=== PATIENT | male | born 1965 | race Two or more races ===

== ENCOUNTER 2020-01-25 08:27 | Inpatient (IN) | payer MEDICAID ==
[~2020-01-25] VITALS: Ht 167.6 cm; Wt 92.1 kg
[2020-01-25 08:33] VITALS: BP 174/79
--- NOTE | 2020-01-25 08:40 | NUR ---
54 YEAR OLD MALE COMPLAINS OF TACHYCARDIA AFTER BEING REFERED BY DOCTOR. PT STATES HE NO LONGER HAS CHEST PAIN FROM TRIAGE. PT DENIES SOB. PT PLACED ON MONITOR, HR 130, RR 20, SPO2 97% ON RA, BP 179/78. ERMD MADE AWARE OF PT STATUS. PT AOX4, BREATHING EVEN AND UNLABORED, SKIN WARM AND DRY. BED IN LOWEST POSITION, LOCKED, BED RAIL UPX1. PMH - HTN ALLERGIES - NKA
[2020-01-25] MEDS ORDERED: ASPIRIN 325 MG TAB PO ONE (08:45)
[2020-01-25] MEDS ORDERED: DILTIAZEM 25 MG/5 ML VIAL IVP ONE (08:55)
[2020-01-25] MEDS ORDERED: NACL 0.9% 1,000 ML IV ONE (08:55)
[2020-01-25 09:04] LABS: BASOPHILS % (AUTO) 0.5 % (0.0-2.0); EOSINOPHILS # (AUTO) 0.6 K/uL (0-0.4); EOSINOPHILS % (AUTO) 6.2 % (0.0-4.0); HEMATOCRIT 45.6 % (36-52); HEMOGLOBIN 15.7 g/dL (12.0-18.0); LYMPHOCYTES # (AUTO) 1.7 K/uL (2.0-11.5); LYMPHOCYTES % (AUTO) 16.6 % (20.5-51.1); MEAN CORPUSCULAR HEMOGLOBIN 30 pg (27-31); MEAN CORPUSCULAR HGB CONC 35 g/dL (33-37); MEAN CORPUSCULAR VOLUME 87.6 fL (80-94); MONOCYTES # (AUTO) 0.7 K/uL (0.8-1.0); MONOCYTES % (AUTO) 6.5 % (1.7-9.3); NEUTROPHILS # (AUTO) 7.1 K/uL (1.8-7.7); NEUTROPHILS % (AUTO) 70.2 % (42.2-75.2); PLATELET COUNT (AUTO) 216 K/uL (140-450); RED CELL DISTRIBUTION WIDTH 15.8 % (11.6-13.7); WHITE BLOOD COUNT (AUTO) 10.2 K/uL (4.8-10.8)
[2020-01-25 09:20] LABS: CARBON DIOXIDE 25.1 mmol/L (21-32); CREATININE 1.2 mg/dL (0.6-1.3); POTASSIUM 4.1 mmol/L (3.5-5.1)
[2020-01-25] MEDS ORDERED: HEPARIN PER PHARMACY MC PRN (09:50)
[2020-01-25] MEDS ORDERED: hePARIN / DEXT 5% PREMIX 250 ML IV ONE (09:50)
--- NOTE | 2020-01-25 10:14 | NUR ---
PT ALERT AND AWAKE, BREATHING EVEN AND UNLABORED. NO DISTRESS NOTED.
--- NOTE | 2020-01-25 10:30 | NUR ---
HEPARIN DRIP INITIAL BOLUS OF 5000 UNITS, RATE OF 900 UNITS/HR
--- NOTE | 2020-01-25 10:30 | NUR ---
HEPARIN DRIP STARTED PER PROTOCOL, VERIFIED BY EDMUND PAZ AND EDITA PAZ.
[2020-01-25] MEDS: hePARIN / DEXT 5% PREMIX 250 ML IV SCH (10:31)
[2020-01-25] MEDS ORDERED: NITROGLYCERIN 0.4 MG TAB SL PRN (11:30)
[2020-01-25] MEDS ORDERED: ACETAMINOPHEN 325 MG TAB PO PRN (11:30)
[2020-01-25] MEDS ORDERED: HYDROcodone/APAP 7.5/325 MG 1 TAB PO PRN (11:30)
[2020-01-25] MEDS ORDERED: guaiFENesin DM 200/20 MG-10 ML 10 ML UDC PO PRN (11:30)
[2020-01-25] MEDS ORDERED: POTASSIUM CHLORIDE 10 MEQ TABER PO PRN (11:30)
[2020-01-25] MEDS ORDERED: ONDANSETRON 4 MG/2 ML VIAL IM/IVP PRN (11:30)
[2020-01-25] MEDS ORDERED: ZOLPIDEM 5 MG TAB PO PRN (11:30)
[2020-01-25] MEDS ORDERED: DOCUSATE SODIUM 100 MG GELCAP PO PRN (11:30)
--- NOTE | 2020-01-25 11:51 | NUR ---
PT C/O 5/10 CHEST PAIN. WILL ADMINISTER PRN PAIN MEDICATION
--- NOTE | 2020-01-25 12:00 | NUR ---
PT ALERT AND AWAKE, BREATHING EVEN AND UNLABORED. NO DISTRESS NOTED.
[2020-01-25 12:05] LABS: THYROID STIMULATING HORMONE 2.35 uIU/mL (0.34-3.74)
[2020-01-25] MEDS: NACL 0.9% 1,000 ML IV SCH ×2 (12:10→20:58)
[2020-01-25 12:26] LABS: APPEARANCE,URINE CLEAR (CLEAR); BILIRUBIN,URINE NEGATIVE (NEGATIVE); BLOOD, URINE NEGATIVE (NEGATIVE); COLOR,URINE YELLOW (YELLOW); LEUKOCYTE ESTERASE ,URINE NEGATIVE (NEGATIVE); NITRITE, URINE NEGATIVE (NEGATIVE); UGLUCOSE NEGATIVE (NEGATIVE)
[2020-01-25 12:33] LABS: BARBITURATE, URINE NEGATIVE ng/ml (NEG <=200); BENZODIAZEPINE, URINE NEGATIVE ng/mL (NEG <=200); CANNABINOID, URINE NEGATIVE ng/mL (NEG <=50); COCAINE, URINE NEGATIVE ng/mL (NEG <=300); OPIATE, URINE NEGATIVE ng/mL (NEG <=2000); PHENCYCLIDINE SCREEN,URINE NEGATIVE ng/mL (NEG <=25)
[2020-01-25 12:35] LABS: CHOL/HDL RATIO 3.6 (1-4.5)
[2020-01-25] MEDS: DILTIAZEM 30 MG TAB PO SCH ×2 (13:07→21:03)
--- NOTE | 2020-01-25 14:00 | NUR ---
PT ALERT AND AWAKE, BREATHING EVEN AND UNLABORED. NO DISTRESS NOTED.
--- NOTE | 2020-01-25 16:00 | NUR ---
PT ALERT AND AWAKE, BREATHING EVEN AND UNLABORED. NO DISTRESS NOTED.
--- NOTE | 2020-01-25 17:00 | NUR ---
HEPARIN DRIP BOLUS OF 2250 UNITS, RATE INCREASED TO 1050 UNIT/HR
[2020-01-25] MEDS ORDERED: CRUSHER, PILL MC ONE (17:17)
[2020-01-25] MEDS: ATORVASTATIN 20 MG TAB PO SCH (17:23)
--- NOTE | 2020-01-25 17:25 | NUR ---
Patient will be admitted to care of Dr Lazcano. Admited to Tele. Will go to room 105A. Belongings list completed. Report to Ynes PAZ.
[2020-01-25 17:32] VITALS: BP 151/107
--- NOTE | 2020-01-25 17:32 | NUR ---
RECEIVED REPORT FROM ER NURSE, EDMUND REGARDING PT, PT IAS ON RA, AOX4, CC OF CHEST PAIN AND DIAGNOSED WITH NEW ONSET AFIB RVR, PT HAS IV LINE S ON THE RT AC G. 20 WITH NS INFUSING AT 110ML/HR AND LEFT AC G. 20 WITH HEPARIN DRIP AT 1050 UNITS /HR,, CONSULT WITH DR. MATOS.
--- NOTE | 2020-01-25 17:40 | NUR ---
RECEIVED PT FROM CAR RENTAL MANAGER VIA GREGOR, PT IS AOX4, ON RA, AMBULATED TO THE BED, TWO IV LINES NOTED, RT AC G. 20 WITH IVF NS INFUSING AT 110ML/HR, AND ON THE LEFT CA G. 20 WITH HEPARIN DRIP AT 1050 UNITS/HE, INTACT, NO SIGN OF DISTRESS NOTED AND WILL MONITOR PT.
--- NOTE | 2020-01-25 18:00 | NUR ---
MRSA SWAB DONE AND SAMPLE SENT TO LAB.
--- NOTE | 2020-01-25 19:10 | NUR ---
ENDORSED PT TO CULLET CRUSHER NURSE, FOR CONTINUITY OF CARE, PT IS STABLE AT THIS TIME.
[2020-01-25 20:00] VITALS: BP 156/88
[2020-01-25] MEDS: METOPROLOL 25 MG TAB PO SCH (21:04)
[2020-01-26] VITALS: BP 124/90
[2020-01-26 04:00] VITALS: BP 144/100
[2020-01-26] MEDS: DILTIAZEM 30 MG TAB PO SCH ×3 (05:16→21:13)
[2020-01-26] MEDS: NACL 0.9% 1,000 ML IV SCH ×3 (05:30→23:54)
[2020-01-26 07:15] LABS: ANION GAP 13.8 (8-16); CARBON DIOXIDE 24.5 mmol/L (21-32); CREATININE 0.9 mg/dL (0.6-1.3); POTASSIUM 3.3 mmol/L (3.5-5.1)
[2020-01-26 07:20] LABS: BASOPHILS % (AUTO) 0.6 % (0.0-2.0); EOSINOPHILS # (AUTO) 0.5 K/uL (0-0.4); EOSINOPHILS % (AUTO) 6.1 % (0.0-4.0); HEMOGLOBIN 13.9 g/dL (12.0-18.0); LYMPHOCYTES # (AUTO) 1.4 K/uL (2.0-11.5); LYMPHOCYTES % (AUTO) 16.2 % (20.5-51.1); MEAN CORPUSCULAR HEMOGLOBIN 31 pg (27-31); MEAN CORPUSCULAR HGB CONC 35 g/dL (33-37); MEAN CORPUSCULAR VOLUME 88.5 fL (80-94); MONOCYTES # (AUTO) 0.5 K/uL (0.8-1.0); MONOCYTES % (AUTO) 5.9 % (1.7-9.3); NEUTROPHILS # (AUTO) 6.1 K/uL (1.8-7.7); NEUTROPHILS % (AUTO) 71.2 % (42.2-75.2); PLATELET COUNT (AUTO) 179 K/uL (140-450); RED BLOOD CELL COUNT(AUTO) 4.52 MIL/uL (4.20-6.10); WHITE BLOOD COUNT (AUTO) 8.6 K/uL (4.8-10.8)
--- NOTE | 2020-01-26 07:22 | NUR ---
HANDOFF WITH BRANDI HERNANDEZ. GIANNI VELAZQUEZ RN
--- NOTE | 2020-01-26 07:23 | NUR ---
RECEIVED PT FROM GANG RIPSAW OPERATOR NURSENARGIS JOEL PT IS AWAKE AND SAFETY PRECAUTION IN PLACE, IV LINE NOTED ON THE RT AC G. 20 WITH NS INFUSING AT 110ML/HR, AND ON THE LEFT AC G. 20 WITH ON HEPARIN DRIP AT RATE OF 1200 UNITS/HR, PT ON ERLIN, NO SIGN OF DISTRESS NOTED AND WILL MONITOR PT.
[2020-01-26 08:00] VITALS: BP 141/100
[2020-01-26] MEDS: ECOTRIN 81 MG TABEC PO SCH (08:35)
[2020-01-26] MEDS: PANTOPRAZOLE 40 MG TABEC PO SCH (08:36)
[2020-01-26] MEDS: METOPROLOL 25 MG TAB PO SCH (08:36)
--- NOTE | 2020-01-26 08:36 | NUR ---
PT WAS GIVEN THE SCHEDULED AM MEDICATIONS NOW, PARAMETERS CHECKED, BP IS 140/100, PULSE IS 70 MANUALLY,, TOLERATED, DENIES PAIN NAND NO SIGN OF DISTRESS NOTED, WILL MONITOR PT.
--- NOTE | 2020-01-26 08:40 | NUR ---
PATIENT HAS BEEN SCREENED AND CATEGORIZED MODERATE NUTRITION RISK. PATIENT WILL BE SEEN WITHIN 3-5 DAYS OF ADMISSION. 01/27/20 01/29/[address]
[2020-01-26] MEDS: hePARIN / DEXT 5% PREMIX 250 ML IV SCH ×2 (08:45→15:02)
--- NOTE | 2020-01-26 08:45 | NUR ---
A NEW BAG OF HEPARIN DRIP WAS STARTED TO PT NOW, RATE IS AT 1200UNITS/HR, PTT IS 56.1, WILL MONITOR PT.
[2020-01-26] MEDS ORDERED: lisinopriL 5 MG TAB PO SCH (09:00)
[2020-01-26 09:14] LABS: T4 (THYROXINE) 7.8 ug/dL (4.5-12.0)
--- NOTE | 2020-01-26 11:00 | NUR ---
ECHOCARDIOGRAM IS BEING DONE TO PT NOW.
[2020-01-26 12:00] VITALS: BP 154/93
--- NOTE | 2020-01-26 13:19 | NUR ---
SOCIAL WORK NOTE: Patient's Orientation Unable To Assess Information Provided By PEDRO ARELLANO - Comments SW WAS UNABLE TO MEET PATIENT AT BEDSIDE TO COMPLETE ASSESSMENT. Blood Bank Worker, Realtionship and Phone Number PEDRO ARELLANO [phone] Healthcare Power of Associate No Does Patient Have a POLST No Identifying Problems No Social Work Triggers Is A Social Work Consult Needed No Mandate Report Filed No Explanation Of Identifying Problems PATIENT IS A 54-YEAR-OLD MALE ADMITTED FOR NEW ONSET AFIB. PATIENT HAS PMHX OF HYPERTENSION. PATIENT'S REPORTED NO HISTORY OF MENTAL HEALTH OR SUBSTANCE ABUSE. Admitted From Home Pre-Admission Level Of Functioning Status Independent/Ambulatory Prior Resources/Services Used In Last 12 Months No Prior Resources Used Prior DME No Prior DME Used Dialysis Comments N/A Living Situation Lives With Family House Patient Had Caregiver No Home Support No Caregiver Issues Financial Issues No Known Financial Issue Referral To The Financial Counselor Needed No Factors/Needs No D/C Needs Identified Explanation And Or Other Factors Affecting/Possible DC Needs PEDRO STATED SHE WOULD PICK PATIENT UP AT DISCHARGE. Pt/Rep Participated In Discharge Plan Yes Patient/Family Agress With Discharge Plan Yes Discharge Plan Comments TENTATIVE DISCHARGE PLAN IS FOR PATIENT TO RETURN HOME. DC Plan Status Initiated
--- NOTE | 2020-01-26 13:20 | NUR ---
RECEIVED REPORT FROM NURSE FOR CONTINUITY OF CARE, PT IS UKRAINIAN SPEAKING, PT HAS RIGHT AX 20G INFUSING NS AT 110MLO/H, LEFT AC 20G INFUSING HEPARING AT 12ML/H, SKIN INTACT, PT IS STABLE, WILL CONTINUE TO MONITOR.
--- NOTE | 2020-01-26 13:24 | NUR ---
PT WAS GIVEN THE SCHEDULED MEDICATION, PARAMETER CHECKED, K-DUR 40MEQ WAS GIVEN FOR K LEVEL OF 3.3, WILL MONITOR PT.
--- NOTE | 2020-01-26 13:25 | NUR ---
ENDORSED PT TO RN KAT FOR CONTINUITY OF CARE.
--- NOTE | 2020-01-26 15:09 | NUR ---
ADMINISTERED HEPARIN BOLUS PER PROTOCOL AND ADJUSTED HEPARIN DRIP TO 1350 UNITS/H, NEW PTT AT 2105. MEDICATION EDUCATION PROVIDED, PT VERBALIZED UNDERSTANDING, PT TOLERATED WELL, PT IS STABLE, WILL CONTINUE TO MONITOR.
[2020-01-26 16:00] VITALS: BP 156/112
--- NOTE | 2020-01-26 16:06 | NUR ---
DC PLANNIN YR SOLD MALE PATIENT WAS ADMITTED FROM HOME WITH A DX OF NEW ONSET OF A-FIB RVR. PT THOMSON A HX OF HYPERTENSION. EKG SHOWED A-FIB RVR . CXR SHOWED NO ACUTE CARDIOPULMONARY DISEASE. RAPID COVID TEST NEGATIVE. TROPONIN 0.116, 0.101 STARTED HEPARIN DRIP AND ACS PROTOCOL. CONSULTED WITH GAME TESTER DR MATOS. DC PLAN TO GO HOME WHEN STABLE CM TO FOLLOW.
[2020-01-26] MEDS: ATORVASTATIN 20 MG TAB PO SCH (17:08)
--- NOTE | 2020-01-26 17:09 | NUR ---
ADMINISTERED SCHEDULED MEDICATION, MEDICATION EDUCATION PROVIDED, PT TOLERATED WELL, PT IS STABLE, HEPARIN ONGOING, WILL CONTINUE TO MONITOR.
--- NOTE | 2020-01-26 19:10 | NUR ---
ENDORSE PT TO NIGHT NURSE FOR CONTINUITY OF CARE, PT STABLE
[2020-01-26 20:00] VITALS: BP 153/109
[2020-01-26] MEDS ORDERED: APIXABAN 2.5 MG TAB PO SCH (21:00)
[2020-01-26] MEDS: SOTALOL 80 MG TAB PO SCH (21:13)
[2020-01-27] VITALS: BP 152/105
[2020-01-27 04:00] VITALS: BP 131/96
[2020-01-27] MEDS: DILTIAZEM 30 MG TAB PO SCH ×2 (04:52→13:00)
--- NOTE | 2020-01-27 07:15 | NUR ---
HANDOFF WITH LEYDI AND ENRIQUE. GIANNI VELAZQUEZ RN
--- NOTE | 2020-01-27 07:30 | NUR ---
RECEIVED PT AAOX4. NO SOB NOTED. NO C/O PAIN AT THIS TIME. IV TO RT AND LT HAND PATENT AND INTACT. CHEST CLEAR. ABDOMEN SOFT, BOWEL SOUNDS PRESENT. NO EDEMA NOTED. INSTRUCTED PT TO CALL FOR ASSISTANCE, CALL LIGHT WITHIN REACH. PT VERBALIZED UNDERSTANDING.
[2020-01-27 07:58] LABS: BASOPHILS # (AUTO) 0.1 K/uL (0.00-0.22); BASOPHILS % (AUTO) 0.5 % (0.0-2.0); EOSINOPHILS # (AUTO) 0.6 K/uL (0-0.4); EOSINOPHILS % (AUTO) 5.9 % (0.0-4.0); HEMATOCRIT 42.2 % (36-52); HEMOGLOBIN 14.5 g/dL (12.0-18.0); LYMPHOCYTES # (AUTO) 1.4 K/uL (2.0-11.5); LYMPHOCYTES % (AUTO) 13.5 % (20.5-51.1); MEAN CORPUSCULAR HEMOGLOBIN 30 pg (27-31); MEAN CORPUSCULAR HGB CONC 34 g/dL (33-37); MEAN CORPUSCULAR VOLUME 88.1 fL (80-94); MONOCYTES # (AUTO) 0.7 K/uL (0.8-1.0); MONOCYTES % (AUTO) 6.4 % (1.7-9.3); NEUTROPHILS # (AUTO) 7.8 K/uL (1.8-7.7); NEUTROPHILS % (AUTO) 73.7 % (42.2-75.2); PLATELET COUNT (AUTO) 212 K/uL (140-450); RED BLOOD CELL COUNT(AUTO) 4.79 MIL/uL (4.20-6.10); WHITE BLOOD COUNT (AUTO) 10.6 K/uL (4.8-10.8)
[2020-01-27 08:00] VITALS: BP 135/106
[2020-01-27 08:18] LABS: ANION GAP 14.8 (8-16); CARBON DIOXIDE 26.1 mmol/L (21-32); CREATININE 1.1 mg/dL (0.6-1.3); POTASSIUM 3.9 mmol/L (3.5-5.1)
[2020-01-27] MEDS ORDERED: lisinopriL 10 MG TAB PO SCH (09:00)
[2020-01-27] MEDS: PANTOPRAZOLE 40 MG TABEC PO SCH (09:45)
[2020-01-27] MEDS: ECOTRIN 81 MG TABEC PO SCH (09:45)
[2020-01-27 10:17] LABS: PROTHROMBIN TIME 10.3 secs (10.8-13.4)
[2020-01-27] MEDS: SOTALOL 80 MG TAB PO SCH (10:58)
[2020-01-27] MEDS ORDERED: ATOR20TA PO (11:31)
[2020-01-27] MEDS ORDERED: SOTA80TA PO (11:31)
[2020-01-27] MEDS ORDERED: RIVA20TA PO (11:31)
[2020-01-27] MEDS ORDERED: LISI-420 PO (11:31)
[2020-01-27] MEDS ORDERED: CAR30 PO (11:38)
[2020-01-27 12:00] VITALS: BP 139/95
--- NOTE | 2020-01-27 13:09 | NUR ---
PER PT, HIS WILL BE ABLE TO PICK HIM UP AROUND 5 PM.
--- NOTE | 2020-01-27 16:30 | NUR ---
DISCHARGE INSTRUCTIONS AND PRESCRIPTIONS GIVEN TO PT WHICH VERBALIZED FULL UNDERSTANDING OF THE INSTRUCTIONS GIVEN AND THE NEED TO FOLLOW UP WITH PCP IN 3-5 DAYS. ARM BANDS AND IV REMOVED, CANNULA TIP INTACT.
[2020-01-27] MEDS ORDERED: WARFARIN 5 MG TAB PO SCH (17:00)
--- NOTE | 2020-01-27 17:10 | NUR ---
PT WHEELED OUT TO THE FRONT LOBBY IN STABLE CONDITION. NO SOB NOTED. NO C/O PAIN AT THIS TIME. PT IS D/C HOME WITH SPOUSE.
== END 2020-01-27 17:15 | disposition home or self-care (01) | DRG 190 ==
LOC: MED 08:27 → MTU 11:42
PROVIDERS: ADMIT Family Medicine; ATTEND Family Medicine
DX: I21.A1 Myocardial infarction type 2 (principal); I16.1 Hypertensive emergency; I67.4 Hypertensive encephalopathy; E78.1 Pure hyperglyceridemia; E87.6 Hypokalemia; I48.91 Unspecified atrial fibrillation; I10 Essential (primary) hypertension; Z90.49 Acquired absence of other specified parts of digestive tract; Z56.0 Unemployment, unspecified; Z20.828 Contact with and (suspected) exposure to other viral communicable diseases
CPT/HCPCS: 36415; 71045; 80048; 80305; 81003; 82150; 83036; 83690; 83735; 83880; 84100; 84436; 84439; 84443; 84479; 84484; 85025; 85610; 85730; 87081; 93005; 96361; 96374; 99291; J1644; J3490; J7030

== ENCOUNTER 2022-01-07 10:42 | Inpatient (IN) | payer MEDICAID ==
[~2022-01-07] VITALS: Ht 164.6 cm; Wt 78.9 kg
[~2022-01-07 10:42] MED LIST: ATOR20TA PO; DILT30TA18 PO; LISI-487 PO; RIVA20TA PO; SOTA80TA PO
[2022-01-07 10:52] VITALS: BP 174/110
--- NOTE | 2022-01-07 11:01 | NUR ---
PT AMB TO BED 10
--- NOTE | 2022-01-07 11:13 | NUR ---
56 y/o male bib self from home, c/o epigastric pain, sob, cough and left sided chest pain for 1 week. pt states left lower chest pain feels like a burning sensation that radiates to abd area. denies fever, chills, sore throat or anyone sick at home with same s/s. a&ox4, venezuelan speaking, ambulatory with steady gait. pt states he has not been compliant with his medications for 8 months due to loss of insurance. pmh: htn, a fib, hld nka med: lipitor, dilitiazem hcl, atorvastatin, lisinopril, sotalol hcl
--- NOTE | 2022-01-07 11:14 | NUR ---
X-Ray at bedside.
[2022-01-07] MEDS ORDERED: METOPROLOL 5 MG/5 ML VIAL IVP ONE (11:20)
[2022-01-07] MEDS ORDERED: DILTIAZEM 25 MG/5 ML VIAL IVP ONE ×2 (11:20→11:45)
[2022-01-07] MEDS ORDERED: DILTIAZEM 30 MG TAB PO ONE (11:45)
[2022-01-07] MEDS ORDERED: FAMOTIDINE 20 MG/2 ML VIAL IVP ONE (11:50)
[2022-01-07] MEDS ORDERED: MORPHINE SULFATE 4 MG/ML SYR IVP ONE (11:50)
[2022-01-07 12:15] LABS: BASOPHILS # (AUTO) 0.1 K/uL (0.00-0.22); BASOPHILS % (AUTO) 0.9 % (0.0-2.0); EOSINOPHILS # (AUTO) 0.3 K/uL (0-0.4); EOSINOPHILS % (AUTO) 3.3 % (0.0-4.0); HEMATOCRIT 42.8 % (36-52); HEMOGLOBIN 14.7 g/dL (12.0-18.0); LYMPHOCYTES % (AUTO) 12.4 % (20.5-51.1); MEAN CORPUSCULAR HEMOGLOBIN 32 pg (27-31); MEAN CORPUSCULAR HGB CONC 34 g/dL (33-37); MEAN CORPUSCULAR VOLUME 92.4 fL (80-94); MONOCYTES # (AUTO) 0.6 K/uL (0.8-1.0); NEUTROPHILS # (AUTO) 6.1 K/uL (1.8-7.7); NEUTROPHILS % (AUTO) 76.4 % (42.2-75.2); PLATELET COUNT (AUTO) 270 K/uL (140-450); RED BLOOD CELL COUNT(AUTO) 4.63 MIL/uL (4.20-6.10); RED CELL DISTRIBUTION WIDTH 15.2 % (11.6-13.7)
[2022-01-07 12:26] LABS: PROTHROMBIN TIME 11.3 secs (10.8-13.4)
[2022-01-07 12:31] LABS: ALBUMIN 2.8 g/dL (3.4-5.0); ASPARTATE AMINOTRANSFERASE 62 U/L (15-37); CHLORIDE 104 mmol/L (98-107); CREATININE 1.5 mg/dL (0.6-1.3); GFR ARICAN-AMERICAN 62 mL/min (>90); GLUCOSE 120 mg/dL (74-106); SODIUM SERUM 143 mmol/L (136-145); UREA NITROGEN, BLOOD 23 mg/dL (7-18)
[2022-01-07] MEDS ORDERED: NACL 0.9% 500 ML IV ONE (12:55)
[2022-01-07] MEDS ORDERED: ASPIRIN 325 MG TAB PO ONE (13:20)
[2022-01-07] MEDS ORDERED: HEPARIN PER PHARMACY MC ONE (13:20)
[2022-01-07] MEDS ORDERED: NITROGLYCERIN 0.4 MG TAB SL ONE (13:20)
[2022-01-07] MEDS ORDERED: hePARIN / DEXT 5% PREMIX 250 ML IV ONE (13:20)
--- NOTE | 2022-01-07 13:53 | NUR ---
bp increased after 1st nitro, 170/123. spo2 decreased to 92%, ermd made aware.
[2022-01-07 16:00] VITALS: BP 140/88
--- NOTE | 2022-01-07 16:00 | NUR ---
RECEIVED CALL FROM LAB OF CRITICAL TROPONIN 2139, DR. BORDEN AWARE. PT CURRENTLY ON HEPARIN DRIP PER PHARMACY PROTOCOL. NO NEW ORDERS. MD ALSO AWARE OF POTASSIUM 3.0, N/O RECEIVED. AWARE OF NO DIET ORDER AND NO CODE STATUS ORDER, NEW ORDERS RECEIVED.
--- NOTE | 2022-01-07 16:00 | NUR ---
1530 RECEIVED PT FROM ER, ACCOMPANIED BY BRANDI QUINTANA. PATIENT RESTING IN BED, AAO x4, DENIES PAIN/DISCOMFORT. RN STATED THAT HEPARIN DRIP WAS INITIATED AT 1352, INFUSING AT 10.26ML/HR (1026 UNITS/HR) PER PHARMACY PROTOCOL TO LAC 18G. PATIENT IS ON RA, RESPIRATIONS EVEN AND UL, DENIES SOB/DISTRESS. PLACED ON TELE MONITOR. PULSES STRONG, NO EDEMA NOTED. BS ACTIVE x4, ABD SOFT AND ROUND, NON-TENDER. AMBULATORY WITHOUT ASSISTANCE. V/S: BP 145/92, HR 95, RR 17, T 97.1, 02 97%RA. CALL LIGHT IN REACH, SAFETY MEASURES IN PLACE. WILL CONT TO MONITOR.
[2022-01-07] MEDS ORDERED: ONDANSETRON 4 MG/2 ML VIAL IM/IVP PRN (16:40)
[2022-01-07] MEDS ORDERED: guaiFENesin DM 200/20 MG-10 ML 10 ML UDC PO PRN (16:40)
[2022-01-07] MEDS ORDERED: ACETAMINOPHEN 325 MG TAB PO PRN (16:40)
[2022-01-07] MEDS: NACL 0.9% 1,000 ML IV SCH (16:40)
[2022-01-07] MEDS ORDERED: HYDROcodone/APAP 7.5/325 MG 1 TAB PO PRN (16:40)
[2022-01-07] MEDS ORDERED: NITROGLYCERIN 0.4 MG TAB SL PRN (16:40)
[2022-01-07] MEDS ORDERED: MORPHINE SULFATE 2 MG/ML SYR IVP PRN (16:40)
[2022-01-07] MEDS ORDERED: DOCUSATE SODIUM 100 MG GELCAP PO PRN (16:40)
[2022-01-07] MEDS ORDERED: HEPARIN PER PHARMACY MC PRN (16:40)
[2022-01-07] MEDS ORDERED: ZOLPIDEM 5 MG TAB PO PRN (16:40)
[2022-01-07] MEDS ORDERED: POTASSIUM CHLORIDE 10 MEQ TABER PO PRN (16:40)
--- NOTE | 2022-01-07 16:50 | NUR ---
PHARMACY HAS GONE HOME FOR THE DAY. BRANDI BARNES TECHNICAL SUPPORT ENGINEER AWARE OF NEW ORDER FOR K-RIDER WITH LIDOCAINE AND STATES THAT TOOL SALVAGE WORKER WILL BE IN LATER TO PREPARE MEDICATION SINCE IT IS NOT AVAILABLE IN [facility].
[2022-01-07] MEDS: KCL 20 MEQ/WATER INJ PREMIX 100 ML IV SCH ×2 (17:00→22:00)
[2022-01-07] MEDS ORDERED: POTASSIUM CHLORIDE 40 MEQ, LIDOCAINE 1% 25 MG in NACL 0.9% 250 ML IV ONE (17:15)
[2022-01-07 17:26] LABS: PROTHROMBIN TIME 11.5 secs (10.8-13.4)
[2022-01-07 18:02] LABS: FREE T4 (FREE THYROXINE) 1.04 ng/dL (0.76-1.46); THYROID STIMULATING HORMONE 1.7 uIU/mL (0.34-3.74)
--- NOTE | 2022-01-07 19:15 | NUR ---
PATIENT IS RESTING IN BED, AAO x4, FAMILY AT BEDSIDE. DENIES PAIN/DISCOMFORT AT THIS TIME. HEPARIN DRIP INFUSING PER PHARMACY PROTOCOL. NEXT PTT TO BE DRAWN AT 1951, VERIFIED WITH PHARMACIST TRICIA AT [facility]. INSERTED NEW 20G TO RH, IVF INFUSING PER MD ORDER. ALL NEEDS MET AT THIS TIME. ENDORSED TO PM NURSE FOR CONTINUITY OF CARE.
--- NOTE | 2022-01-07 19:20 | NUR ---
RECEIVED REPORT FROM AM NURSE IRENE RN FOR CONTINUITY OF CARE. PT IS STABLE IN BED. A&OX4. AT BEDSIDE. DENIES PAIN AT THIS TIME. ON RM AIR/O2 WITH NO ACUTE DISTRESS. RR EVEN AND UNLABORED WITH EQUAL CHEST RISE. GI INTACT. PT'S SKIN IS INTACT. PT IS AMBULATORY AND CONTINENT. ALL SAFETY MEASURES IN PLACE. BED IN LOW AND LOCKED POSITION. CALL LIGHT WITHIN REACH. WILL CONTINUE TO MONITOR.
[2022-01-07 20:00] VITALS: BP 148/104
[2022-01-07] MEDS: SOTALOL 80 MG TAB PO SCH (20:20)
--- NOTE | 2022-01-07 20:20 | NUR ---
PT ON HEPARIN DRIP@1026UNITS PER HR OR 10.26 ML/HR INFUSING INTO IV LAC 18G. STAT APTT DRAW AT 2009. RESULTS APTT = 31.4 AT 2130. ORDER TO GIVE BOLUS OF 6300UNITS HEPARIN THEN INCREASE RATE TO 1400 UNITS/HR PLUS 300UNITS /HR FOR A TOTAL OF 1700 UNITS/HR TOTAL OR 17ML/HR. PTT DRAW ORDERED ON 01/08/22 AT 0515. AMIR CALLED WITH CRITICAL TROPONIN LEVEL OF 2252. SENT TEXT TO DR. BORDEN RE: TROPONIN LEVEL.
[2022-01-07] MEDS: DILTIAZEM 30 MG TAB PO SCH (20:21)
[2022-01-07] MEDS: ATORVASTATIN 20 MG TAB PO SCH (20:21)
--- NOTE | 2022-01-07 22:00 | NUR ---
PT ON POTASSIUM CHLORIDE 20MEQ/PREMIX 100CC BAG @50CC/HR. AT 2202 PT C/O 10/10 PAIN IN R HAND BURNING FROM POTASSIUM INFUSING. MORPHINE 2MG/1ML 1VP GIVEN AND RATE TURNED DOWN TO 30ML/HR. AT 2210 2ND BAG OF POTASSIUM HUNG.
[2022-01-07] MEDS ORDERED: KCL 20 MEQ/WATER INJ PREMIX 100 ML IV ONE (22:10)
--- NOTE | 2022-01-07 23:55 | NUR ---
PT HAVING DRY HEAVES ANDSWEATING FROM THE PAIN AND BURNING OF THE POTASSIUM ZOFRAN 4MG/2ML GIVEN IVP. AT 0015 STILL COULDN'T SLEEP. MEDICATED WITH AMBIEN 5MG PO. PT FINALLY SLEEPING AT 0100. RR EVEN AND UNLABORED WITH SYMMETRICAL CHEST RISE.
[2022-01-08] VITALS: BP 105/71
--- NOTE | 2022-01-08 02:12 | NUR ---
URINE SPECIMEN COLLECTED FOR URINE PROFILE AND DRUG SCREEN. PT STABLE. HEPARIN DRIP CONTINUES AT 17ML/HR.
[2022-01-08 04:00] VITALS: BP 111/81
[2022-01-08] MEDS: DILTIAZEM 30 MG TAB PO SCH ×3 (05:24→22:07)
[2022-01-08 06:07] LABS: APPEARANCE,URINE CLEAR (CLEAR); BILIRUBIN,URINE 1+ (NEGATIVE); BLOOD, URINE NEGATIVE (NEGATIVE); COLOR,URINE DARK YELLOW (YELLOW); LEUKOCYTE ESTERASE ,URINE NEGATIVE (NEGATIVE); NITRITE, URINE NEGATIVE (NEGATIVE); PH,URINE 6.5 (5.0-9.0); UGLUCOSE NEGATIVE (NEGATIVE)
[2022-01-08 06:19] LABS: BARBITURATE, URINE NEGATIVE ng/ml (NEG <=200); BENZODIAZEPINE, URINE NEGATIVE ng/mL (NEG <=200); COCAINE, URINE NEGATIVE ng/mL (NEG <=300)
[2022-01-08 06:20] LABS: CANNABINOID, URINE NEGATIVE ng/mL (NEG <=50); OPIATE, URINE POSITIVE ng/mL (NEG <=2000); PHENCYCLIDINE SCREEN,URINE NEGATIVE ng/mL (NEG <=25)
--- NOTE | 2022-01-08 06:20 | NUR ---
DR CASTILLO INFORMED OF TROPONIN LEVEL OF 2252. SHE INQUIRED IF DR. PRITCHARD WAS ON BOARD? AT 0640 DR PRITCHARD WAS CALLED MESSAGE WAS LEFT WITH SERVICE.
[2022-01-08 06:45] LABS: ANION GAP 13.4 (8-16); CARBON DIOXIDE 27.2 mmol/L (21-32); CREATININE 1.6 mg/dL (0.6-1.3); POTASSIUM 3.6 mmol/L (3.5-5.1)
[2022-01-08 07:09] LABS: BASOPHILS # (AUTO) 0.1 K/uL (0.00-0.22); BASOPHILS % (AUTO) 0.6 % (0.0-2.0); EOSINOPHILS # (AUTO) 0.1 K/uL (0-0.4); EOSINOPHILS % (AUTO) 0.6 % (0.0-4.0); HEMATOCRIT 43.6 % (36-52); HEMOGLOBIN 14.9 g/dL (12.0-18.0); LYMPHOCYTES # (AUTO) 0.9 K/uL (2.0-11.5); LYMPHOCYTES % (AUTO) 8.8 % (20.5-51.1); MEAN CORPUSCULAR HEMOGLOBIN 32 pg (27-31); MEAN CORPUSCULAR HGB CONC 34 g/dL (33-37); MEAN CORPUSCULAR VOLUME 93.5 fL (80-94); MONOCYTES # (AUTO) 0.5 K/uL (0.8-1.0); MONOCYTES % (AUTO) 5.3 % (1.7-9.3); NEUTROPHILS # (AUTO) 8.6 K/uL (1.8-7.7); NEUTROPHILS % (AUTO) 84.7 % (42.2-75.2); PLATELET COUNT (AUTO) 302 K/uL (140-450); RED BLOOD CELL COUNT(AUTO) 4.66 MIL/uL (4.20-6.10); RED CELL DISTRIBUTION WIDTH 15.4 % (11.6-13.7); WHITE BLOOD COUNT (AUTO) 10.1 K/uL (4.8-10.8)
--- NOTE | 2022-01-08 07:20 | NUR ---
STILL WAITING FOR DR. PRITCHARD TO RESPOND.
--- NOTE | 2022-01-08 07:30 | NUR ---
RECEIVED REPORT FROM PM NURSE. PATIENT RESTING IN BED, AAO x4, RESPIRATIONS EVEN AND UL ON RA. DENIES PAIN/DISCOMFORT. ALL NEEDS MET AT THIS TIME. HEPARIN DRIP INFUSING PER PHARMACY PROTOCOL TO LAC. ALL NEEDS MET AT THIS TIME. BED IN LOWEST POSITION, CALL LIGHT IN REACH, SAFETY MEASURES IN PLACE.
--- NOTE | 2022-01-08 07:40 | NUR ---
ENDORSED REPORT TO AM NURSE IRENE RN FOR CONTINUITY OF CARE. PT IS STABLE. ALL NEEDS MET THROUGHOUT THE SHIFT.
--- NOTE | 2022-01-08 07:55 | NUR ---
RECEIVED PTT 125.1, HEPARIN DRIP HELD FOR 1 HOUR PER PHARMACY PROTOCOL, VERIFIED WITH PHARMACY AND SECOND RN MARTINA. WILL RESUME IN 1 HOUR AT 1460 UNITS/HR PER PHARMACY (14.60ML/HR).
[2022-01-08 08:00] VITALS: BP 125/92
[2022-01-08] MEDS ORDERED: HEPARIN PER PHARMACY MC PRN (08:10)
--- NOTE | 2022-01-08 08:55 | NUR ---
STARTED HEPARIN DRIP AT 1460 UNITS/HR (14.6ML/HR) PER PHARMACY PROTOCOL. VERFIED WITH SECOND RN MARTINA. PTT ORDERED FOR 6 HRS PER PROTOCOL.
[2022-01-08] MEDS: hePARIN / DEXT 5% PREMIX 250 ML IV SCH (08:56)
[2022-01-08] MEDS ORDERED: lisinopriL 20 MG TAB PO SCH (09:00)
[2022-01-08] MEDS: SOTALOL 80 MG TAB PO SCH ×2 (09:14→22:06)
[2022-01-08] MEDS: PANTOPRAZOLE 40 MG TABEC PO SCH (09:15)
[2022-01-08] MEDS: NACL 0.9% 1,000 ML IV SCH ×2 (09:15→22:11)
[2022-01-08 12:00] VITALS: BP 138/91
--- NOTE | 2022-01-08 15:56 | NUR ---
RECEIVED CALL FROM LAB, PTT 68.4, PER PHARMACY PROTOCOL, NO CHANGE TO HEPARIN DRIP RATE. VERIFIED WITH SECOND RN MARTINA. PATIENT RESTING IN BED, AAO x4, RESPIRATIONS EVEN AND UL ON RA. FAMILY AT BEDSIDE. CALL LIGHT IN REACH, BED IN LOW, SIDE RAILS x2. WILL CONT TO MONITOR. Addendum: 01/08/22 at 1606 by Agency 10 BRANDI PAZ WILL ORDER NEXT PTT TO BE DRAWN IN 6 HRS PER PROTOCOL.
[2022-01-08 16:00] VITALS: BP 123/90
--- NOTE | 2022-01-08 19:10 | NUR ---
PATIENT RESTING IN BED, AAO x4, RESPIRATIONS EVEN AND UL ON RA. DENIES PAIN AT THIS TIME. HEPARIN DRIP INFUSING TO LAC PER PHARMACY PROTOCOL. NO SIGNIFICANT CHANGES THROUGHOUT SHIFT. ALL NEEDS MET. REPORT GIVEN TO PM NURSE FOR CONTINUITY OF CARE.
--- NOTE | 2022-01-08 19:20 | NUR ---
RECEIVED PT REPORT FROM AM NURSE IRENE RN FOR CONTINUITY OF CARE, PT A&OX4 RESTING IN BED.RR EVEN AND UNLABORED WITH EQUAL CHEST RISE. IV LAC18G INFUSING HEPARIN. IV20GR HAND INFUSING NS@60CC/HR. DENIES PAIN. ON RM AIR/O2 WITH NO ACUTE DISTRESS. GI INTACT. PT'S SKIN IS INTACT. PT IS AMBULATORY AND CONTINENT. USING URINAL VOIDED 100CC DARK MAYRA URINE. ALL SAFETY MEASURES IN PLACE. CALL LIGHT WITHIN REACH.
[2022-01-08 20:00] VITALS: BP 103/70
--- NOTE | 2022-01-08 22:00 | NUR ---
HS MEDS GIVEN VITAL SIGNS:T-98.1 ORAL P-48, RR-18, BP-103/70, O2SAT= 97% ON RM AIR . PT LYING IN BED A&0X4 RR EVEN AND UNLABORED WITH EQUAL CHEST RISE. NAD. WILL CONTINUE TO MONITOR.
[2022-01-08] MEDS: hydrALAZINE 10 MG TAB PO SCH (22:05)
[2022-01-08] MEDS: ATORVASTATIN 20 MG TAB PO SCH (22:07)
--- NOTE | 2022-01-08 22:35 | NUR ---
CALLED LAB APTT VALUE FROM 2155 DRAW = 74.5. PER PROTOCOL HEPARIN RATE REDUCED TO 1310UNITS /HR OR 13.10ML/HR. NEXT LAB DRAW FOR PTT DUE AT 0435 01/09/2022.
[2022-01-09] VITALS (7 sets, daily range): BP systolic 99–149; BP diastolic 73–98
[2022-01-09] MEDS: hePARIN / DEXT 5% PREMIX 250 ML IV SCH (04:18)
[2022-01-09] MEDS: DILTIAZEM 30 MG TAB PO SCH (04:34)
[2022-01-09 06:23] LABS: BASOPHILS # (AUTO) 0.1 K/uL (0.00-0.22); BASOPHILS % (AUTO) 1.2 % (0.0-2.0); EOSINOPHILS # (AUTO) 0.3 K/uL (0-0.4); EOSINOPHILS % (AUTO) 2.8 % (0.0-4.0); HEMATOCRIT 43.9 % (36-52); HEMOGLOBIN 14.9 g/dL (12.0-18.0); LYMPHOCYTES # (AUTO) 1.9 K/uL (2.0-11.5); LYMPHOCYTES % (AUTO) 20.1 % (20.5-51.1); MEAN CORPUSCULAR HEMOGLOBIN 32 pg (27-31); MEAN CORPUSCULAR HGB CONC 34 g/dL (33-37); MEAN CORPUSCULAR VOLUME 93.8 fL (80-94); MONOCYTES # (AUTO) 0.8 K/uL (0.8-1.0); MONOCYTES % (AUTO) 8.8 % (1.7-9.3); NEUTROPHILS # (AUTO) 6.4 K/uL (1.8-7.7); NEUTROPHILS % (AUTO) 67.1 % (42.2-75.2); PLATELET COUNT (AUTO) 295 K/uL (140-450); RED BLOOD CELL COUNT(AUTO) 4.69 MIL/uL (4.20-6.10); RED CELL DISTRIBUTION WIDTH 15.3 % (11.6-13.7); WHITE BLOOD COUNT (AUTO) 9.6 K/uL (4.8-10.8)
[2022-01-09 06:32] LABS: ANION GAP 14.4 (8-16); CARBON DIOXIDE 25.1 mmol/L (21-32); CREATININE 2.2 mg/dL (0.6-1.3); POTASSIUM 3.5 mmol/L (3.5-5.1)
--- NOTE | 2022-01-09 07:24 | NUR ---
GOT REPORT FROM NIGHT NURSE, PT SLEEPING , NO SOB. [id number]
[2022-01-09] MEDS: hydrALAZINE 10 MG TAB PO SCH (08:44)
[2022-01-09] MEDS: SOTALOL 80 MG TAB PO SCH (08:44)
[2022-01-09] MEDS: PANTOPRAZOLE 40 MG TABEC PO SCH (08:44)
--- NOTE | 2022-01-09 10:19 | NUR ---
PATIENT HAS BEEN SCREENED AND CATEGORIZED LOW NUTRITION RISK. PATIENT WILL BE SEEN WITHIN 7 DAYS OF ADMISSION. 01/14/22 REVIEWED BY JENNIFER STOVER RD
[2022-01-09] MEDS: ECOTRIN 81 MG TABEC PO SCH (12:45)
--- NOTE | 2022-01-09 13:30 | NUR ---
DC PLANNING: PER DR PRITCHARD PATIENT NEEDS CARDIAC CATH AND TO TRANSFER HIM TO HIGHER LEVEL OF CARE. FAXED TO [facility]. CM TO FOLLOW Addendum: 01/09/22 at 1712 by Lucy Canales RN DC PLANNING: PER S[facility] ADI TRINIDAD SENT A TRANSFER AGREEMENT TO BE SIGNED. THE PAPER WORK SIGNED BY NOAH KumarBLOWER OPERATOR). ARRANGED TRANSPORT WITH [facility] PLACE IT WILL CALL. NOTIFIED [facility]. CM TO FOLLOW Addendum: 01/10/22 at 1206 by Lucy Canales RN DC PLANING: CALLED [facility] SPOKE WITH SETH STATED THEY HAVE NO BED AVAILABLE , I ASKED SETH THAT IF IT CAN BE DONE OUT PATIENT AND TO SEND THE PATIENT BACK. PER SETH WILL ASK THE ENGINEER OPERATIONS AND MAINTENANCE AND CALL US BACK. CALLED [facility] ADMITTING SPOKE WITH ILYA [phone] AND FAXED TO [phone] [facility] SUPERVISOR [phone] FAXED TO [phone] AND AND [facility] [place] FAXED TO [phone]. CM TO FOLLOW Addendum: 01/10/22 at 1310 by Lucy Canales RN DC PLANNING: RECEIVED A CALL FROM [facility] SUP REVIEWED THE PAPERWORK AND REQUESTING THE MD'S NUMBER FOR PEER TO PEER PROVIDED DR PRITCHARD'S PHONE NUMBER. CM TO FOLLOW Addendum: 01/10/22 at 1608 by Lucy Canales RN DC PLANNING: RECEIVED A CALL FROM [facility] SUP [phone] STATED THEY CAN ACCEPT PATIENT. SPOKE WITH PATIENT STATED IT IS TOO FAR FOR HIM AND REFUSED TOGO TO [place] HE EVEN STATED "I DON'T THINK I HAVE HEART PROBLEM IT IS MORE WITH MY STOMACH" CALLED PATIENT SPOKE WITH PEDRO EXPLAINED THAT PATIENT REFUSAL TO GO TO THE ACCEPTING FACILITY ERNIE HUNTLEY STATED SALES ASSISTANT INSTITUTIONAL SALES EXPLAINED TO HER AND SHE DISCUSSED WITH HIM FOR THE NECESSITY OF CARDIAC CATH. HOW EVER SHE CAN NOT CONVINCE HIM AND HE REFUSED. [facility] STILL HAS NO BED. [facility] NO BED . CM TO FOLLOW. CM TO FOLLOW
--- NOTE | 2022-01-09 15:54 | NUR ---
DC PLANNING ANIL MET WITH PT AT BEDSIDE TO COMPLETE ASSESSMENT. PT REPORTS RESIDING IN A SINGLE STORY HOME WITH HIS FAMILY ( AND DAUGHTER) AT THE ADDRESS LISTED ON FILE. PATIENT IDENTIFIED PEDRO ARELLANO, SPOUSE, EMERGENCY CONTACT AND MDM. PATIENT DENIES HAVING AD IN PLACE AND DECLINED AD OFFERED BY ANIL. PATIENT REPORTS MEETING WITH DR. TINOCO NEEDED, LAST VISIT; 10 MONTHS AGO. PATIENT DENIES TAKING MEDICATION AT THIS TIME HOWEVER REPORTS ISSUES WITH ACQUIRING MEDICATION DUE TO INSURANCE COVERAGE CHANGE. SW TO PROVIDE PT WITH MEDICATION ASSISTANCE RESOURCES. PATIENT REPORTS RECEIVING MEDICATION FROM [facility], WHEN NEEDED. PATIENT REPORTS BEING INDEPENDENT IN ALL ACTIVITIES AND DENIES USE OF DME. PT DENIES MH HX. PATIENT DENIES SUBSTANCE USE HX, DESPITE TESTING POSITIVE FOR OPIATE USE AT ADMISSIONS. PT DECLINED SUBSTANCE USE RESOURCES OFFERED BY ANIL. PT REPORTS DC PLAN IS TO RETURN HOME WITH HIS OR DAUGHTER PROVIDING TRANSPORTATION ONCE MEDICALLY STABLE. Addendum: 01/09/22 at 1625 by Audra ESPAÑA PROVIDED PATIENT WITH MEDICATION ASSISTANCE AND SUBSTANCE USE RESOURCES. PT ACCEPTED.
--- NOTE | 2022-01-09 19:30 | NUR ---
RECD. RESTING IN BED, AWAKE, A/OX4. RESPIRATION EVEN AND UNLABORED. CONVERSING WITH DAUGHTER AT THE BEDSIDE. ON HEPARIN DRIP, 1310 UNITS/HR, IV OF NS INFUSING AT 60 ML/HR, RIGHT HAND G20. TOLERATING WELL CARDIAC DIET. AMBULATORY TO THE BR. DENIES PAIN 0/10.
[2022-01-09] MEDS: METOPROLOL 50 MG TAB PO SCH (21:18)
--- NOTE | 2022-01-09 21:18 | NUR ---
SCHEDULED MEDICATION FOR THE NIGHT ADMINISTERED.
--- NOTE | 2022-01-09 22:00 | NUR ---
AMBULATED TO THE BR TO VOID, GAIT STEADY.
[2022-01-10] VITALS (10 sets, daily range): BP systolic 131–167; BP diastolic 90–121
--- NOTE | 2022-01-10 | NUR ---
Patient's Plan of Care was discussed and reviewed with ABRAM MURPHY
--- NOTE | 2022-01-10 | NUR ---
SLEEPING COMFORTABLY IN BED. RESPIRATION EVEN AND UNLABORED.
--- NOTE | 2022-01-10 03:00 | NUR ---
ON HIS RIGHT SIDE, SLEEPING. NO DISTRESS NOTED.
--- NOTE | 2022-01-10 05:00 | NUR ---
AWAKE IN BED, DENIES PAIN 0/10.
--- NOTE | 2022-01-10 07:00 | NUR ---
CONDITION REMAIN STABLE. WILL ENDORSED TO AM SHIFT NURSE FOR CONTINUITY OF CARE.
[2022-01-10 07:53] LABS: BASOPHILS # (AUTO) 0.1 K/uL (0.00-0.22); BASOPHILS % (AUTO) 0.9 % (0.0-2.0); EOSINOPHILS # (AUTO) 0.2 K/uL (0-0.4); EOSINOPHILS % (AUTO) 2.6 % (0.0-4.0); HEMATOCRIT 44.4 % (36-52); HEMOGLOBIN 15.1 g/dL (12.0-18.0); LYMPHOCYTES # (AUTO) 1.5 K/uL (2.0-11.5); LYMPHOCYTES % (AUTO) 15.9 % (20.5-51.1); MEAN CORPUSCULAR HEMOGLOBIN 32 pg (27-31); MEAN CORPUSCULAR HGB CONC 34 g/dL (33-37); MEAN CORPUSCULAR VOLUME 93.4 fL (80-94); MONOCYTES # (AUTO) 0.6 K/uL (0.8-1.0); MONOCYTES % (AUTO) 6.3 % (1.7-9.3); NEUTROPHILS # (AUTO) 6.8 K/uL (1.8-7.7); NEUTROPHILS % (AUTO) 74.3 % (42.2-75.2); PLATELET COUNT (AUTO) 277 K/uL (140-450); RED BLOOD CELL COUNT(AUTO) 4.75 MIL/uL (4.20-6.10); RED CELL DISTRIBUTION WIDTH 15.2 % (11.6-13.7); WHITE BLOOD COUNT (AUTO) 9.1 K/uL (4.8-10.8)
[2022-01-10 08:25] LABS: ANION GAP 16.5 (8-16); CARBON DIOXIDE 21.7 mmol/L (21-32); CREATININE 1.8 mg/dL (0.6-1.3); POTASSIUM 3.2 mmol/L (3.5-5.1)
[2022-01-10] MEDS ORDERED: ATORVASTATIN 80 MG TAB PO SCH (09:00)
[2022-01-10] MEDS: ECOTRIN 81 MG TABEC PO SCH (10:03)
[2022-01-10] MEDS: METOPROLOL 50 MG TAB PO SCH ×2 (10:04→20:20)
[2022-01-10] MEDS: PANTOPRAZOLE 40 MG TABEC PO SCH (10:06)
[2022-01-10] MEDS: hydrALAZINE 20 MG/ML VIAL IVP PRN ×4 (17:39→19:05)
--- NOTE | 2022-01-10 19:30 | NUR ---
RECEIVED REPORT FROM MORNING SHIFT NURSE. PT IS AOX4, AMBULATORY, ABLE TO VERBALIZE NEEDS AND ABLE TO FOLLOW COMMANDS. PT IS ON ROOM AIR AND ON CARDIAC DIET. PT IS ON STRICT I&O WITH IV ON LEFT FOREARM G18 RUNNING WITH HEPARIN AND SALINE LOCK ON RIGHT HAND GAUGE 20. PT IS WAITING FOR THE RESULT OF COVID TEST FOR TRANSFER AT [facility]. NO COMPLAIN OF PAIN AT THIS TIME. NO S/S OF DISTRESS NOTED. ALL SAFETY MEASURES IMPLEMENTED. BED IN LOW POSITION, BED WHEELS ON LOCKED AND CALL LIGHT WITHIN REACH.
--- NOTE | 2022-01-10 20:20 | NUR ---
SCHEDULED AND PRESCRIBED MEDICATION WAS GIVEN TO PT P[ER MD ORDER. ALL SAFETY MEASURES IMPLEMENTED. BED IN LOW POSITION, BED WHEELS ON LOCKED AND CALL LIGHT WITHIN REACH.
--- NOTE | 2022-01-10 20:30 | NUR ---
RECEIVED THE RESULT OF COVID AND IT WAS NEGATIVE. WILL CALL BARBIE GMAT TUTOR OF [facility] FOR TRANSFER.
--- NOTE | 2022-01-10 20:35 | NUR ---
CALLED THE ARTIST COLOR SEPARATION OF [facility] AND GAVE THE RESULT OF NEGATIVE COVID TEST. GAVE THE HOSPITAL DEPARTMENT AND ROOM NUMBER.
--- NOTE | 2022-01-10 20:45 | NUR ---
CALLED [facility] TRANSPORT AND TALKED TO SHA. SHE TOLD ME THAT THE TRANSPORT WILL BE HERE AT 2300.
--- NOTE | 2022-01-10 21:15 | NUR ---
CALLED [facility] TO GIVE REPORT. TALKED TO KATE PAZ AND GAVE PT INFORMATION, ENDORSED AND REPORT.
--- NOTE | 2022-01-10 22:20 | NUR ---
[facility] TRANSPORT ARRIVED TO TEXTILE CONVERSION MANAGER THE PT. PAPERS/POCKETS WITH CX-RAY CD WAS GIVEN TO ASHLEY (EMT). ALL BELONGINGS WAS GIVEN. HEART MONITOR WAS REMOVED. HEALTH EDUCATION WAS ALSO GIVEN TO PT.
== END 2022-01-10 22:20 | disposition short-term general hospital (02) | DRG 190 ==
LOC: MED 10:42 → MTU 14:01
PROVIDERS: ADMIT Family Medicine; ATTEND Family Medicine
DX: I21.4 Non-ST elevation (NSTEMI) myocardial infarction (principal); N17.0 Acute kidney failure with tubular necrosis; E44.0 Moderate protein-calorie malnutrition; I48.20 Chronic atrial fibrillation, unspecified; E87.6 Hypokalemia; E78.5 Hyperlipidemia, unspecified; I50.9 Heart failure, unspecified; I13.0 Hypertensive heart and chronic kidney disease with heart failure and stage 1 through stage 4 chronic kidney disease, or unspecified chronic kidney disease; Z20.822 Contact with and (suspected) exposure to COVID-19; I71.40 Abdominal aortic aneurysm, without rupture, unspecified; N18.31 Chronic kidney disease, stage 3a; Z68.29 Body mass index [BMI] 29.0-29.9, adult; Z79.899 Other long term (current) drug therapy
CPT/HCPCS: 36415; 71045; 71275; 76770; 80048; 80053; 80305; 81003; 82150; 83036; 83690; 83735; 83880; 84100; 84436; 84439; 84443; 84479; 84484; 85025; 85379; 85610; 85730; 87081; 93005; 96365; 96366; 96375; 96376; 99285; J0360; J1644; J2270; J2405; J3480; J3490; J7030; Q0092; Q9967